=== PATIENT | male | born 1990 | race Caucasian/White ===

== ENCOUNTER 2020-05-21 14:06 | Emergency (ER) | payer OTHER ==
[2020-05-22] MEDS ORDERED: MEDROL 4MG DOSEP4 MG PO (12:39)
[2020-05-22] MEDS ORDERED: ZPAK PO (12:39)
== END 2020-05-21 16:53 | disposition home or self-care (01) ==
LOC: FER 14:06
DX: R07.0 Pain in throat (principal); Z88.0 Allergy status to penicillin
CPT/HCPCS: 87880; 99282

== ENCOUNTER 2020-05-22 10:16 | Emergency (ER) | payer OTHER ==
[2020-05-22 12:26] LABS: CORONAVIRUS 2019 SARS-COV-2 NEGATIVE (NEGATIVE); INFLUENZA A NAA NEGATIVE (NEGATIVE)
[2020-05-22] MEDS ORDERED: ZPAK PO (12:39)
[2020-05-22] MEDS ORDERED: MEDROL 4MG DOSEP4 MG PO (12:39)
== END 2020-05-22 12:40 | disposition home or self-care (01) ==
LOC: FER 10:16
PROVIDERS: Emergency Medicine
DX: J02.9 Acute pharyngitis, unspecified (principal); K12.2 Cellulitis and abscess of mouth; H92.03 Otalgia, bilateral; Z20.822 Contact with and (suspected) exposure to COVID-19
CPT/HCPCS: 87880; 99283; U0002

== ENCOUNTER 2020-06-15 10:27 | Emergency (ER) | payer OTHER ==
[~2020-06-15 10:27] MED LIST: MEDROL 4MG DOSEP4 MG PO; ZPAK PO
[2020-06-15] MEDS ORDERED: IBUPROFEN800 MG PO (11:25)
== END 2020-06-15 11:54 | disposition home or self-care (01) ==
LOC: FER 10:27
DX: S62.344A Nondisplaced fracture of base of fourth metacarpal bone, right hand, initial encounter for closed fracture (principal); W22.01XA Walked into wall, initial encounter; Y92.009 Unspecified place in unspecified non-institutional (private) residence as the place of occurrence of the external cause
CPT/HCPCS: 73130